=== PATIENT | male | born 1960 | race Caucasian/White ===

== ENCOUNTER 2017-03-20 15:55 | Outpatient (CLI) | payer OTHER ==
[2017-03-21] MEDS ORDERED: AMLODIPINE BESYL5 MG PO ×2 (01:25)
[2017-03-21] MEDS ORDERED: ATORVASTATIN CA20 MG PO ×2 (01:25)
[2017-03-21] MEDS ORDERED: TRIUMEQ 600-50-1 TAB PO ×2 (01:27)
[2017-03-21] MEDS ORDERED: OXAYDO5 MG PO ×2 (01:28)
[2017-03-21] MEDS ORDERED: LISINOPRIL10 MG PO ×2 (01:29)
[2017-03-21] MEDS ORDERED: ACETAMINOPHEN325 MG PO ×2 (01:30)
[2017-03-21] MEDS ORDERED: CEPHALEXIN500 MG PO ×2 (08:29)
--- NOTE | 2017-03-21 17:38 | NUR ---
Patient discharged home after last unit of blood was finished and labs were drawn. Understood discharge instructions and had no further questions. Left the facility at 1645.
== END 2017-03-20 23:00 ==
LOC: LAB SRH 15:55
DX: R63.4 Abnormal weight loss (principal); D64.9 Anemia, unspecified; B20 Human immunodeficiency virus [HIV] disease; D68.9 Coagulation defect, unspecified
CPT/HCPCS: 90074; 95059; 95067

== ENCOUNTER 2017-03-20 17:44 | Observation (INO) | payer OTHER ==
[~2017-03-20] VITALS: Ht 184.2 cm; Wt 74.7 kg
--- NOTE | 2017-03-20 19:33 | ED NURSING NOTES ---
Clinical Report - Nurses [facility] [address] [place] [address] 03/20/2017 17:46 Patient: MAE VILLA TRIAGE Triage time 18:10. Acuity: LEVEL 3. Chief Complaint: (anemia). Alert. No acute distress. SEPSIS SCREEN: Sepsis Screen. Negative (no infection suspected/documented). Temperature not greater than 38.3 degrees C (101 degrees F). Heart rate not greater than 90. Respiratory rate not greater than 20. GORDON COMA SCORE: [place] Coma Scale: 15- eyes open spontaneously (4); best verbal response- oriented x 4 (5); best motor response- obeys commands (6). --18:19 Amador Soni R.N. 18:13 03/20/17. BP: 147/65. HR: 58. RR: 20. O2 saturation: 100% on room air. Temp: 98 F (oral). Pain level now 7/10. --18:19 Amador Soni R.N. Weight: 71.6 kg stated. Height/Length: 72 inches Per Patient. BMI: 21.4. --18:15 Amador Soni R.N. Medications HIV medication. Medicinal marijuana. --18:17 Amador Soni R.N. OxyCODONE HCl Oral. --18:18 Amador Soni R.N. Tylenol Oral. --18:18 Amador Snoi R.N. Allergies None. --18:18 Amador Soni R.N. Medication/allergy information source: the patient. --18:19 Amador Soni R.N. History ( called pt in [employer] at 1752, unable to locate). --18:08 Amador Soni R.N. Primary physician (luze lena). ( pt had an appt today to establish care. States he was feeling "overly emotional and that he might be anemic again." He states he was sent by [facility] due to low h&h). This started today. 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 SOCIAL HX: Heavy tobacco smoker (cigarette)- less than 1 pack per day. History of drug use: marijuana. No alcohol use. FALL RISK ASSESSMENT: Fall risk assessment completed. No fall risk identified. NUTRITIONAL RISK ASSESSMENT: The nutritional risk assessment revealed no deficiencies. FUNCTIONAL ASSESSMENT: Functional assessment: no impairments noted. LEARNING NEEDS ASSESSMENT: The learning needs assessment revealed no barriers. SKIN INTEGRITY ASSESSMENT: Skin integrity risk assessment completed. No skin integrity risk identified. --18:19 Amador Soni R.N. PROBLEMS: Hip pain. Blood loss in legs. Anemia. HIV Illness. --18:19 Amador Soni R.N. ADDITIONAL SURGERIES: Basal cell carcinoma. --18:19 Amador Soni R.N. Interventions ID band on patient. To treatment room. --18:19 Amador Soni R.N. PHYSICAL ASSESSMENT 18:20 03/20/17. Ambulatory to room. GENERAL / NEURO / PSYCH: Oriented X 4. Appears in no acute distress. Mood/affect abnormal (flat). HEENT: Mucous membranes are pink. RESPIRATORY: Respirations not labored. GI / : Abdomen soft. SKIN: Skin is pale. --18:20 Amador Soni R.N. NURSING PROGRESS NOTES 18:03/20/2017 Site #1 started via IV in the right antecubital space with an 20g angiocath, with aseptic technique and good blood return; one attempt. Blood drawn: rainbow set. Labeled in the presence of the patient and sent to the lab. Saline lock flushed with 10 mL saline. --18:19 Patricia Allison R.N. The plan of care for this patient has been created. Head of bed elevated. Call light placed in reach. Bed placed in lowest position. Brakes of bed on. Patient ready for evaluation- chart flagged. --18:20 Amador Soni R.N. ( requested urine sample from pt, provided a urinal. Pt states, "Its gonna be a long time before I can pee. A long time. Probably after the transfusion."). --18:23 Amador Soni R.N. Critical value received by JAY Schulz. Hgb: 5.9. Hct: 18.4. Critical value read back. Verified lab result. ED physician and charge nurse notifed of critical value. Orders were received. --18:57 Amador Soni R.N. 19:49 03/20/2017 Zofran (Ondansetron HCl) IVP 4 mg given over 30 second(s) via site #1. Allergies verified and confirmed 5 rights. IV patency established. IV site checked: no pain, redness, or swelling. IV flushed thoroughly pre- and post-medication administration. IVP given by RN. --19:52 Gwen Ballard R.N. 19:50 03/20/2017 Dilaudid (HYDROmorphone HCl PF) IVP 0.5 mg given over 1 minute(s) via site #1. Allergies verified, confirmed 5 rights and sedative warning given to the patient. IV patency established. IV site checked: no pain, redness, or swelling. IV flushed thoroughly pre- and post-medication administration. IVP given by RN. --19:53 Gwen Ballard R.N. 19:53 03/20/17. BP: 133/55. HR: 56. RR: 15. O2 saturation: 100% on room air. Pain level now: 03/17. --19:53 Gwen Ballard R.N. 19:09. ( Attempted to reach Dr. Milton, Hematology oncologist at [facility]. Photographic Artist said all oncologists had left for the day and there was no doctor on-call. She transferred me to a forge operator but call was never picked up.). --19:58 Anahy Sanches 19:13. ( 2nd attempt to call [facility] oncologist or bellows charger assembler but call was transferred to the infusion center lockstitch front maker with no answer.). --20:00 Anahy Sanches 19:54- admitting MD, Dr. Easton at bedside to admit pt. --19:55 Gwen Ballard R.N. 20:17 03/20/17. BP: 155/55. HR: 63. RR: 15. O2 saturation: 100%. --20:17 Amador Soni R.N. ( pt still states he is unable to void). --20:39 Amador Soni R.N. 20:29. BLOOD PRODUCT STARTED: consent signed, ID band checked and blood product verified to order and patient's blood band by 2 staff members. #1 unit PRBC via IV pump (started at 150/hour at 2028. see paper transfusion record. Extensive education provided to pt prior to transfusion on s/sx of transfusion reaction and to immediately notify nurse of any changes or concerns. Pt verbalizes understanding.). See transfusion record. --20:41 Amador Soni R.N. DISPOSITION / DISCHARGE 21:26 03/20/17. Departure time: 2124. Condition at departure: stable. Admitted to Acute Care. Transported via stretcher by nurse with IV. Report was given to a nurse via a phone call. Report included patient's care, treatment, medications, reviewed medication reconcilliation, and condition (including any recent changes or anticipated changes). Report was acknowledged and care was transferred. (KELLY Kaye). ( blood infusing during transport by this RN, VS stable). Patient's personal items; items were transported with the patient. --21:26 Amador Soni R.N. 21:26 03/20/17. BP: 109/66. HR: 50. RR: 16. O2 saturation: 95%. Temp: 98.2 F. --21:26 Amador Soni R.N. Departure time: 21:33. --21:33 Gwen Ballard R.N. Locked/Released at 03/23/2017 9:39 by Amador Soni R.N.
--- NOTE | 2017-03-20 19:33 | ED NURSING NOTES ---
Clinical Report - Nurses [facility] [address] [place] [address] 03/20/2017 17:46 Patient: MAE VILLA TRIAGE Triage time 18:10. Acuity: LEVEL 3. Chief Complaint: (anemia). Alert. No acute distress. SEPSIS SCREEN: Sepsis Screen. Negative (no infection suspected/documented). Temperature not greater than 38.3 degrees C (101 degrees F). Heart rate not greater than 90. Respiratory rate not greater than 20. GORDON COMA SCORE: [place] Coma Scale: 15- eyes open spontaneously (4); best verbal response- oriented x 4 (5); best motor response- obeys commands (6). --18:19 Amador Soni R.N. 18:13 03/20/17. BP: 147/65. HR: 58. RR: 20. O2 saturation: 100% on room air. Temp: 98 F (oral). Pain level now 7/10. --18:19 Amador Soni R.N. Weight: 71.6 kg stated. Height/Length: 72 inches Per Patient. BMI: 21.4. --18:15 Amador Soni R.N. Medications HIV medication. Medicinal marijuana. --18:17 Amador Soni R.N. OxyCODONE HCl Oral. --18:18 Amador Soni R.N. Tylenol Oral. --18:18 Amador Soni R.N. Allergies None. --18:18 Amador Soni R.N. Medication/allergy information source: the patient. --18:19 Amador Soni R.N. History ( called pt in [employer] at 1752, unable to locate). --18:08 Amador Soni R.N. Primary physician (luz elena). ( pt had an appt today to establish care. States he was feeling "overly emotional and that he might be anemic again." He states he was sent by [facility] due to low h&h). This started today. 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 SOCIAL HX: Heavy tobacco smoker (cigarette)- less than 1 pack per day. History of drug use: marijuana. No alcohol use. FALL RISK ASSESSMENT: Fall risk assessment completed. No fall risk identified. NUTRITIONAL RISK ASSESSMENT: The nutritional risk assessment revealed no deficiencies. FUNCTIONAL ASSESSMENT: Functional assessment: no impairments noted. LEARNING NEEDS ASSESSMENT: The learning needs assessment revealed no barriers. SKIN INTEGRITY ASSESSMENT: Skin integrity risk assessment completed. No skin integrity risk identified. --18:19 Amador Soni R.N. PROBLEMS: Hip pain. Blood loss in legs. Anemia. HIV Illness. --18:19 Amador Soni R.N. ADDITIONAL SURGERIES: Basal cell carcinoma. --18:19 Amador Soni R.N. Interventions ID band on patient. To treatment room. --18:19 Amador Soni R.N. PHYSICAL ASSESSMENT 18:20 03/20/17. Ambulatory to room. GENERAL / NEURO / PSYCH: Oriented X 4. Appears in no acute distress. Mood/affect abnormal (flat). HEENT: Mucous membranes are pink. RESPIRATORY: Respirations not labored. GI / : Abdomen soft. SKIN: Skin is pale. --18:20 Amador Soni R.N. NURSING PROGRESS NOTES 18:03/20/2017 Site #1 started via IV in the right antecubital space with an 20g angiocath, with aseptic technique and good blood return; one attempt. Blood drawn: rainbow set. Labeled in the presence of the patient and sent to the lab. Saline lock flushed with 10 mL saline. --18:19 Patricia Allison R.N. The plan of care for this patient has been created. Head of bed elevated. Call light placed in reach. Bed placed in lowest position. Brakes of bed on. Patient ready for evaluation- chart flagged. --18:20 Amador oSni R.N. ( requested urine sample from pt, provided a urinal. Pt states, "Its gonna be a long time before I can pee. A long time. Probably after the transfusion."). --18:23 Amador Soni R.N. Critical value received by JAY Schulz. Hgb: 5.9. Hct: 18.4. Critical value read back. Verified lab result. ED physician and charge nurse notifed of critical value. Orders were received. --18:57 Amador Soni R.N. 19:49 03/20/2017 Zofran (Ondansetron HCl) IVP 4 mg given over 30 second(s) via site #1. Allergies verified and confirmed 5 rights. IV patency established. IV site checked: no pain, redness, or swelling. IV flushed thoroughly pre- and post-medication administration. IVP given by RN. --19:52 Gwen Ballard R.N. 19:50 03/20/2017 Dilaudid (HYDROmorphone HCl PF) IVP 0.5 mg given over 1 minute(s) via site #1. Allergies verified, confirmed 5 rights and sedative warning given to the patient. IV patency established. IV site checked: no pain, redness, or swelling. IV flushed thoroughly pre- and post-medication administration. IVP given by RN. --19:53 Gwen Ballard R.N. 19:53 03/20/17. BP: 133/55. HR: 56. RR: 15. O2 saturation: 100% on room air. Pain level now: 03/17. --19:53 Gwen Ballard R.N. 19:09. ( Attempted to reach Dr. Milton, Hematology oncologist at [facility]. Fire Extinguisher Repairer Inspector said all oncologists had left for the day and there was no doctor on-call. She transferred me to a bunch breaker but call was never picked up.). --19:58 Anahy Sanches 19:13. ( 2nd attempt to call [facility] oncologist or propellant charge loader but call was transferred to the infusion center front counter attendant with no answer.). --20:00 Anahy Sanches 19:54- admitting MD, Dr. Easton at bedside to admit pt. --19:55 Gwen Ballard R.N. 20:17 03/20/17. BP: 155/55. HR: 63. RR: 15. O2 saturation: 100%. --20:17 Amador Soni R.N. ( pt still states he is unable to void). --20:39 Amador Soni R.N. 20:29. BLOOD PRODUCT STARTED: consent signed, ID band checked and blood product verified to order and patient's blood band by 2 staff members. #1 unit PRBC via IV pump (started at 150/hour at 2028. see paper transfusion record. Extensive education provided to pt prior to transfusion on s/sx of transfusion reaction and to immediately notify nurse of any changes or concerns. Pt verbalizes understanding.). See transfusion record. --20:41 Amador Soni R.N. DISPOSITION / DISCHARGE 21:26 03/20/17. Departure time: 2124. Condition at departure: stable. Admitted to Acute Care. Transported via stretcher by nurse with IV. Report was given to a nurse via a phone call. Report included patient's care, treatment, medications, reviewed medication reconcilliation, and condition (including any recent changes or anticipated changes). Report was acknowledged and care was transferred. (KELLY Kaye). ( blood infusing during transport by this RN, VS stable). Patient's personal items; items were transported with the patient. --21:26 Amador Soni R.N. 21:26 03/20/17. BP: 109/66. HR: 50. RR: 16. O2 saturation: 95%. Temp: 98.2 F. --21:26 Amador Soni R.N. Departure time: 21:33. --21:33 Gwen Ballard R.N. Locked/Released at 03/23/2017 9:39 by Amador Soni R.N.
--- NOTE | 2017-03-20 19:33 | ED CLINICAL REPORT ---
Clinical Report - Physicians/[facility] [address] [place] [address] 03/20/2017 17:46 Patient: MAE VILLA Time Seen: 17:50. Arrived- By private vehicle. Historian- patient. HISTORY OF PRESENT ILLNESS Chief Complaint: anemia. This started about 5 months ago and is still present. It was gradual in onset and has been constant and waxing/waning. (patient has a history of approximate 5 months of problems with anemia. He reports that it started with pain in his left thigh and bruising there. He was recently found to be anemic. He has had an oncologic workup at [facility]. He says that he must feel he was ruled out and that he underwent a bone marrow biopsy which was unremarkable. He has had prior blood transfusions. He reports chronic pain in his thighs as well as bruising there and severe pain in his hips when he walks.). REVIEW OF SYSTEMS No chills, fever, sweats, calf pain or chest pain. No cough, pedal edema, abdominal pain, black stools or diarrhea. No nausea, vomiting or urinary problems. He has had severe fatigue. He has had difficulty breathing. It has been similar to previous symptoms. The patient has also had dyspnea on exertion. He has had bloody stools (previously - none recently). He has had severe joint pain (chronically - he says this is worse when he walks.), involving the right hip and left hip. Has had similar previous symptoms of joint pain. He reports that his HIV is well controlled. He says he last had a CD4 count and viral load done 3 months ago and that these were "good.". he reports bleeding gums. All systems otherwise negative, except as recorded above. PAST HISTORY PCP - Deandra Hematology - [place] at [facility]. Problems: Hip pain. Blood loss in legs. Anemia. HIV Illness. Additional Surgeries: Basal cell carcinoma. Medications: Tylenol Oral. OxyCODONE HCl Oral. HIV medication. Medicinal marijuana. Allergies: None. SOCIAL HISTORY Current every day heavy tobacco smoker (cigarette)- less than 1 pack per day. History of drug use: marijuana. No alcohol use. Residence: he recently moved to this area. ADDITIONAL NOTES The nursing notes have been reviewed. PHYSICAL EXAM Vital Signs: 03/20/2017 18:13 BP: 147/65. HR: 58. RR: 20. O2 saturation: 100%. Temp: 98 F. Have been reviewed. Appearance: Alert. He appears ill, is pale and ashen and appears frail. Eyes: Pupils equal, round and reactive to light. ENT: (gingival leukoplakia). Neck: Neck supple. CVS: Normal heart rate and rhythm. 2/6 systolic murmur. Respiratory: No respiratory distress. Breath sounds normal. Abdomen: No visible injury. Soft and nontender. Bowel sounds normal. No organomegaly. No mass. Back: Normal inspection. Rectal: Rectal exam normal and nontender. Stool heme negative. (POC test reference range: negative). Skin: Skin warm and dry. Extremities: No calf tenderness. Right thigh: moderate tenderness and large ecchymosis. Left thigh: moderate tenderness and large ecchymosis. LABS, X-RAYS, AND EKG Laboratory Tests: CBC w Diff: (SEBAS: 03/20/2017 18:10) ( MsgRcvd 03/20/2017 18:41) IP Test Result Flag Units (Reference) WHITE BLOOD COUNT 4.1 L K/uL (4.5-11.5) RED BLOOD COUNT 2.01 L M/uL (4.50-5.90) HEMATOCRIT 18.4 *L % (41.0-53.0) CRITICAL RESULTS CALLEDCalled to DIAN 03/20/17 1840Were 2 patient identifiers used? YESWas the result read back? YES MEAN CELL VOLUME 92 fL (80-100) MEAN CORPUSCULAR HGB 29 pg (26-34) MEAN CORPUSCULAR HGB CONC 32 g/dL (31-37) RED CELL DISTRIBUTION WIDTH 20.3 H % (11.6-14.8) PLATELET COUNT 328 K/uL (150-400) NEUTROPHIL % 53.3 % (50-75) LYMPH % 41.1 H % (25-40) MONO % 4.6 % (3-14) EOSINOPHIL % 0.3 % (0-4) BASOPHIL % 0.7 % (0-2) PT with INR: (SEBAS: 03/20/2017 18:10) ( MsgRcvd 03/20/2017 18:46) Final results Test Result Flag Units (Reference) INR 1.1 (0.8-1.2) Low Intensity Therapy: INR 1.5-2.0 PT range 18.5-23.1Mod.Intensity Therapy: INR 2.0-3.0 PT range 23.1-31.5High Intensity Therapy: INR 2.5-3.5 PT range 27.4-35.5High Intensity Therapy 2: INR 3.0-4.0 PT range 31.5-39.3 APTT 33 SECONDS (24-34) CMP: (SEBAS: 03/20/2017 18:10) ( MsgRcvd 03/20/2017 19:01) Final results Test Result Flag Units (Reference) GLUCOSE 101 mg/dL (70-110) BUN 11 mg/dL (7-18) CREATININE 1.2 mg/dL (0.6-1.3) Estimated GFR >60 mL/min Estimated GFR- >60 mL/min Note: Persistent reduction over 3 months in eGFR<60 mL/min/1.73 m2 defines CKD. Patients with eGFR values>=60 mL/min/1.73 m2 may also have CKD if evidence ofpersistent proteinuria. Additional information may be foundat www.kidney.org. SODIUM 133 L mmol/L (136-145) POTASSIUM 4.1 mmol/L (3.5-5.1) CHLORIDE 100 mmol/L (98-107) CARBON DIOXIDE 23 mmol/L (21-32) CALCIUM 8.1 L mg/dL (8.5-10.1) TOTAL PROTEIN 6.4 g/dL (6.4-8.2) ALBUMIN 2.4 L g/dL (3.3-5.0) BILIRUBIN, TOTAL 1.7 H mg/dL (0.0-1.0) ALKALINE PHOSPHATASE 97 U/L (46-116) AST (SGOT) 20 U/L (15-37) ALT (SGPT) 12 U/L (12-78) LIPASE 72 L U/L (73-393) AMYLASE 38 U/L (25-115) . PROGRESS AND PROCEDURES Course of Care: Patient is stable. Discussed case with hospitalist, (Jemma). Reviewed test results and need for additional work-up. Agreed upon treatment plan, need for patient follow-up and decision to place in observation. Health care provider will see patient in hospital. Patient/family counseled. Old medical records reviewed. Disposition: Admitted. Observation. CLINICAL IMPRESSION Severe chronic anemia. (Electronically signed by Yemi Salazar MD 03/21/2017 9:34)
--- NOTE | 2017-03-20 19:33 | ED ORDER SUMMARY ---
..... Patient: MAE VILLA OrderSheet [facility] VisitID: [id number] [place] [address] 56y, M Registration Date/Time: 03/20/2017 ORDER SHEET Weight: 71.6 kg (stated) Allergies: None GENERAL ORDERS: CBC w Diff Urgent (17:51 03/20/2017 Jaime HURT) (Ack 17:54 LNations ER Tech1) (18:12 Bradley R.N.) CMP Urgent (17:51 03/20/2017 Jaime HURT) (Ack 17:54 LNations ER Tech1) (18:12 Bradley R.N.) UA-Culture if indicated Urgent (17:51 03/20/2017 Jaime HURT) (Ack 17:54 LNations ER Tech1) PT with INR Urgent (17:51 03/20/2017 Jaime HURT) (Ack 17:54 LNations ER Tech1) (18:12 Bradley R.N.) PTT Urgent (17:51 03/20/2017 Jaime HURT) (Ack 17:54 LNations ER Tech1) (18:12 Bradley R.N.) Amylase Urgent (17:51 03/20/2017 Jaime HURT) (Ack 17:54 LNations ER Tech1) (18:12 Bradley R.N.) Lipase Urgent (17:51 03/20/2017 Jaime HURT) (Ack 17:54 LNations ER Tech1) (18:13 Bradley R.N.) Type & Screen Urgent (17:51 03/20/2017 Jaime HURT) (Ack 17:54 LNations ER Tech1) (18:13 Bradley R.N.) Type & Cross (BLEEDING) (LOW H-H) Urgent (18:53 03/20/2017 LNations ER Tech1 verbal order read back to Jaime HURT) (18:55 KWilliams R.N.) - (manual differential) (19:28 03/20/2017 Jaime HURT) (Ack 19:29 RKaruga) (20:39 KWilliams R.N.) - (transfuse 2 units PRBC's - 3H per unit) (19:47 03/20/2017 Jaime HURT) (Ack 19:53 RKaruga) (20:39 KWoscarams R.N.) MEDICATION ORDERS: IV FLUIDS: IV Saline Lock (17:51 03/20/2017 Jaime HURT) (Ack 18:13 Bradley R.N.) (18:24 Ananda R.N.) Dilaudid IV 0.5 mg (HIGH ALERT MEDICATION, NOW) (19:40 03/20/2017 Jaime HURT) (Ack 19:47 RCollier R.N.) (19:53 RCollier R.N.) Zofran IV 4 mg (NOW) (19:40 03/20/2017 Jaime HURT) (Ack 19:47 RCollier R.N.) (19:52 RCollier R.N.) ORDER SHEET NOTES: [Electronically signed by Yemi Salazar MD (09:34 03/21/2017)] [Electronically signed by Amador Soni R.N. (09:39 03/23/2017)] [Electronically locked/signed by Amador Soni R.N. (09:39 03/23/2017)]
--- NOTE | 2017-03-20 19:33 | ED ORDER SUMMARY ---
..... Patient: MAE VILLA OrderSheet [facility] VisitID: [id number] [place] [address] 56y, M Registration Date/Time: 03/20/2017 ORDER SHEET Weight: 71.6 kg (stated) Allergies: None GENERAL ORDERS: CBC w Diff Urgent (17:51 03/20/2017 Jaime HURT) (Ack 17:54 LNations ER Tech1) (18:12 Bradley R.N.) CMP Urgent (17:51 03/20/2017 Jaime HURT) (Ack 17:54 LNations ER Tech1) (18:12 Bradley R.N.) UA-Culture if indicated Urgent (17:51 03/20/2017 Jaime HURT) (Ack 17:54 LNations ER Tech1) PT with INR Urgent (17:51 03/20/2017 Jaime HURT) (Ack 17:54 LNations ER Tech1) (18:12 Bradley R.N.) PTT Urgent (17:51 03/20/2017 Jaime HURT) (Ack 17:54 LNations ER Tech1) (18:12 Bradley R.N.) Amylase Urgent (17:51 03/20/2017 Jaime HURT) (Ack 17:54 LNations ER Tech1) (18:12 Bradley R.N.) Lipase Urgent (17:51 03/20/2017 Jaime HURT) (Ack 17:54 LNations ER Tech1) (18:13 Bradley R.N.) Type & Screen Urgent (17:51 03/20/2017 Jaime HURT) (Ack 17:54 LNations ER Tech1) (18:13 Bradley R.N.) Type & Cross (BLEEDING) (LOW H-H) Urgent (18:53 03/20/2017 LNations ER Tech1 verbal order read back to Jaime HURT) (18:55 KWilliams R.N.) - (manual differential) (19:28 03/20/2017 Jaime HURT) (Ack 19:29 RKaruga) (20:39 KWilliams R.N.) - (transfuse 2 units PRBC's - 3H per unit) (19:47 03/20/2017 Jaime HURT) (Ack 19:53 RKaruga) (20:39 KWoscarams R.N.) MEDICATION ORDERS: IV FLUIDS: IV Saline Lock (17:51 03/20/2017 Jaime HURT) (Ack 18:13 Bradley R.N.) (18:24 Ananda R.N.) Dilaudid IV 0.5 mg (HIGH ALERT MEDICATION, NOW) (19:40 03/20/2017 Jaime HURT) (Ack 19:47 RCollier R.N.) (19:53 RCollier R.N.) Zofran IV 4 mg (NOW) (19:40 03/20/2017 Jaime HURT) (Ack 19:47 RCollier R.N.) (19:52 RCollier R.N.) ORDER SHEET NOTES: [Electronically signed by Yemi Salazar MD (09:34 03/21/2017)] [Electronically signed by Amador Soni R.N. (09:39 03/23/2017)] [Electronically locked/signed by Amador Soni R.N. (09:39 03/23/2017)]
--- NOTE | 2017-03-20 20:38 | Progress Note ---
Subjective General Admission History and Physical Examination Patient Name: Refugio Rodriguez Admission Date: March 20, 2017 Primary Care Provider: Helena BOSCH Attending Physician: Roger Wolfe M.D. Admitting Physician: Aneesh Easton M.D. Code Status: NO CODE Room: 202 Status: Observation, ACU SUBJECTIVE Historian: Patient Reliability: Fair Chief Complaint: Anemia, bleeding in the legs History of Present Illness: The patient is a 56-year-old white male with a significant past medical history of HIV, spontaneous ecchymosis/bleeding into bilateral lower extremities, chronic anemia associated with spontaneous ecchymosis presented to [facility] emergency department as a referral from Helena Liriano secondary to anemia for further evaluation and treatment. [facility] ER evaluation was consistent with anemia requiring transfusional therapy. Secondary to the above, the patient was admitted by Aneesh Easton M.D. for further evaluation and treatment. The patient has a long-standing history dating back to October 2016 of recurrent spontaneous ecchymosis/bleeding into bilateral lower extremities. He is undergone extensive workup at [place] [facility] with no clear etiology as to the cause of his spontaneous ecchymosis. Records are not available at this time. This is like to recurrent anemia, chronic lower extremity pain, inability to ambulate without a walker. He has received multiple transfusions in the past. [facility] ER evaluation as noted above was consistent with anemia H&H 5.9/18.5 requiring transfusional therapy. Secondary to the above the patient was admitted for transfusion by Aneesh Easton M.D. PAST MEDICAL HISTORY Illnesses: 1. HIV 2. Spontaneous ecchymosis/bleeding Allergies: 1. No known drug allergies Medications: 1. Marijuana-oral 2. Oxycodone-dosage unknown 3. Tylenol-dosage unknown Surgery: 1. Basal cell carcinoma excision 2. Injury forearm Injuries: 1. Forearm injury Hospitalizations: 1. For above surgery and medical problems FAMILY HISTORY Parents: 1. Father, Lan, , 65, CHF 2. Mother, Andrei, living, 78, fibromyalgia Siblings: 1. Female, living, 57, healthy 2. Male, living, 56, healthy Children: 1. None Other significant family history: None SOCIAL HISTORY 1. Marital Status: Single 2. Nondenominational: None 3. Education: High school and 2 years of college 4. Employment History: Unemployed, disabled 2017 5. Occupational health exposures: None HABITS 1. Tobacco: Cigarettes-40 pack years, smokes 1-2 cigarettes per day 2. Drugs: Marijuana 3. Alcohol: None 4. Caffeine: Coffee-one cup per day HEALTH SUPERVISION Item/Test 1. Colonoscopy: 2012 IMMUNIZATIONS: 1. Pneumococcal: 2016 2. Influenza: 2016 3. Tetanus: Unknown ADVANCED DIRECTIVES: 1. Living well: No 2. POLST: No 3. Code Status: NO CODE 4. Durable [employer] Employee [employer] Intern Health care: No 5. Donor card: No REVIEW OF SYSTEMS Remarkable for those things stated in the history of present illness and past medical history. Seventeen point review of system completed with the following notable findings: General: Weight loss, fatigue, weakness Skin: Rash, dryness, skin changes Nose: Epistaxis Mouth: Gums soreness, teeth problems, sores in mouth Cardiovascular: Ankle swelling, shortness of breath with exertion Gastrointestinal: Loss of appetite Musculoskeletal: Joint stiffness, joint pain, joint swelling, muscle pain/ cramping Blood and lymphatic: Anemia, easy bruising/bleeding Physical Exam Vital Signs / I&Os Vital Signs Date Time Temp Pulse Resp B/P Pulse O2 O2 Flow FiO2 Ox Delivery Rate 03/21 0251 98.6 70 14 136/72 98 Room Air 03/21 0120 98.4 65 15 123/75 99 03/21 0015 98.1 51 15 121/66 100 03/20 2347 98.2 62 17 136/62 99 03/20 2333 98.6 58 15 139/77 100 03/20 2316 97.5 57 15 146/79 100 03/20 2302 97.9 74 16 146/73 100 03/20 2227 97.9 53 15 133/77 100 Room Air 0.0 I&O 03/21 0000 03/20 1600 03/20 0800 Intake Total 0 Output Total 0 Balance 0 General Appearance Alert, Oriented X3, Cooperative, No acute distress HEENT Atraumatic, PERRLA, EOMI, Moist mucous membranes Lungs Clear to auscultation, Normal air movement Neck Supple, No JVD Cardiovascular Regular rate and rhythm, Normal S1 and S2, grade 2/6 systolic murmur present Abdomen Normal bowel sounds, Soft Extremities No cyanosis, No clubbing, bilateral lower extremity edema with diffuse ecchymosis primarily involving thighs right greater than left Skin biopsy site left lower abdomen. Neurological Cranial nerves intact, Strength 5/5 x4 ext's, No lateralizing signs Psych/Mental Status Mental status normal, Mood normal LAB Results Laboratory Tests 03/20 1810 Chemistry Plasma Sodium (136 - 145 mmol/L) 133 Plasma Potassium (3.5 - 5.1 mmol/L) 4.1 Plasma Chloride (98 - 107 mmol/L) 100 CO2 (Enzymatic) (21 - 32 mmol/L) 23 BUN (7 - 18 mg/dL) 11 Creatinine (0.6 - 1.3 mg/dL) 1.2 Est GFR ( Amer) (mL/min) >60 Est GFR (Non-Af Amer) (mL/min) >60 Glucose (70 - 110 mg/dL) 101 Plasma Calcium (8.5 - 10.1 mg/dL) 8.1 Total Bilirubin (0.0 - 1.0 mg/dL) 1.7 AST (15 - 37 U/L) 20 ALT (12 - 78 U/L) 12 Alkaline Phosphatase (46 - 116 U/L) 97 Total Protein (6.4 - 8.2 g/dL) 6.4 Albumin (3.3 - 5.0 g/dL) 2.4 Amylase (25 - 115 U/L) 38 Lipase (73 - 393 U/L) 72 Coagulation INR (0.8 - 1.2) 1.1 APTT (24 - 34 SECONDS) 33 Hematology WBC (4.5 - 11.5 K/uL) 4.1 RBC (4.50 - 5.90 M/uL) 2.01 Hgb (13.5 - 17.5 gm/dL) 5.9 Hct (41.0 - 53.0 %) 18.4 MCV (80 - 100 fL) 92 MCH (26 - 34 pg) 29 RDW (11.6 - 14.8 %) 20.3 Neut % (Auto) (50 - 75 %) 62 Lymph % (Auto) (25 - 40 %) 34 [place] % (Auto) (3 - 14 %) 2 Eos % (Auto) (0 - 4 %) 0 Baso % (Auto) (0 - 2 %) 1 Band Neutrophils % (0 - 8 %) 1 Metamyelocytes % (0 - 1 %) 0 Myelocytes (0 - 1 %) 0 Other Cell Type 0 Plt Count, EDTA (150 - 400 K/uL) 328 Anisocytosis (manual) 3+ PUBS MCHC (31 - 37 g/dL) 32 Assessment and Plan Problem List 1. Anemia Status Chronic Onset Date Unknown Plan -Patient presents with findings of chronic anemia secondary to recurrent lower extremity bleeding -Transfuse 2 units packed RBCs -Outpatient follow-up with PCP -Plan discharge in a.m. 2. HIV disease Status Chronic Onset Date Unknown Plan -The patient has history of HIV disease -Currently on ART -We'll follow-up with ID specialist scheduled through Dr. Wolfe/Deandra -States recent CD4 counts good 3. UTI (urinary tract infection) Status Acute Onset Date Unknown Plan -Patient with findings of UTI on urinalysis -Rocephin 1 g IV -Switch to oral meds in a.m. -Await urine C&S 4. Ecchymoses, spontaneous Status Chronic Onset Date Unknown Plan -Patient with history of spontaneous ecchymosis -Etiology unclear at this time -Outpatient follow-up with hematology/oncology at [facility] Current status: Fair, unstable Anticipated discharge date: Anticipated discharge in 24 hours Anticipated discharge placement: Home Patient care time: Time in chart review, patient interview, physical exam, CPOE, and care documentation: 70 mins Visit to patient today: 2 Complexity of care: Moderate-High DVT prophylaxis: SCD E&M Codes Admission: Obsv-Comp/Moderate/[id number]
[2017-03-20 22:27] VITALS: BP 133/77
[2017-03-20 23:02] VITALS: BP 146/73
[2017-03-20 23:16] VITALS: BP 146/79
[2017-03-20 23:33] VITALS: BP 139/77
--- NOTE | 2017-03-20 23:41 | NUR ---
PT ARRIVED TO THE FLOOR AT 2130 WITH FIRST UNIT OF BLOOD ALREADY RUNNING. NO SIGNS OF ADVERSE REACTION NOTED, VITAL SIGNS STABLE. PT WAS UNABLE TO PROVIDE ANY URINE FOR SPECIMENT SAMPLE IN THE ED AND WAS ONLY ABLE TO PROVIDE A VERY SMALL AMOUNT UPON ARRIVAL TO THE FLOOR. PT REPORTS CHRONIC PAIN IN HIS BLE R/T BLEEDING. PT HAS REPORTS HAVING CHRONIC ANEMIA, DENIES DIZZINESS AND REPORTS ONLY MILD SHORTNESS OF BREATH UPON EXERTION. HE IS ALERT AND ORIENTED X 3. WILL CONTINUE TO MONITOR PT FOR CHANGES IN CONDITION.
[2017-03-20 23:47] VITALS: BP 136/62
[2017-03-21] VITALS (10 sets, daily range): BP systolic 110–143; BP diastolic 66–77
[2017-03-21] MEDS ORDERED: ATORVASTATIN CA20 MG PO ×2 (01:25)
[2017-03-21] MEDS ORDERED: AMLODIPINE BESYL5 MG PO ×2 (01:25)
[2017-03-21] MEDS ORDERED: TRIUMEQ 600-50-1 TAB PO ×2 (01:27)
[2017-03-21] MEDS ORDERED: OXAYDO5 MG PO ×2 (01:28)
[2017-03-21] MEDS ORDERED: LISINOPRIL10 MG PO ×2 (01:29)
[2017-03-21] MEDS ORDERED: ACETAMINOPHEN325 MG PO ×2 (01:30)
--- NOTE | 2017-03-21 04:07 | NUR ---
PT RANG BENSON TO GO TO THE BATHROOM, WENT IN ROOM TO HELP PT GET ON SIDE OF BED.ONCE PT WAS ON SIDE OF BED, PT TOLD ME THAT I CAN LEAVE, I OFFERED HELPED TO THE PT ASKING IF HE NEEDED HELP PUSHING THE IV POLE WHILE PT USES WALKER, PT DECLINE ASSISTANCE FROM TURNTABLE WORKER. TURNTABLE WORKER LEFT ROOM. REPORTED TO NURSE ON THE ACTION
--- NOTE | 2017-03-21 08:25 | Provider's Discharge Care Plan ---
Problem, Goal, Plan Problem List 1. Anemia Goals: Improved health/wellness, Therapeutic intervention Instructions: Follow up as directed 2. Ecchymoses, spontaneous Goals: Diagnostic testing Instructions: Follow up as directed 3. HIV disease Goals: Improved health/wellness Instructions: Follow up as directed 4. UTI (urinary tract infection) Goals: Therapeutic intervention Instructions: Follow up as directed
[2017-03-21] MEDS ORDERED: CEPHALEXIN500 MG PO ×2 (08:29)
--- NOTE | 2017-03-21 10:45 | NUR ---
CALLED DR TORRES AND SPOKE WITH MARTA. ASKED FOR THE ORDER FOR THE 1 UNIT OF BLOOD SHE SAID SHE WANTS HIM TO GET.
--- NOTE | 2017-03-21 11:07 | NUR ---
the 2nd unit of rbc was not ended last night. i charted and end time of 2301 which was the last documented vital signs. I do not, however, know what time the unit actually stopped.
--- NOTE | 2017-03-21 14:57 | NUR ---
patient finishing up his blood transfusion. tolerating well. complains of 8/10 back pain. gave prn pain meds. resting in bed. patient will discharge this afternoon/evening after his blood is complete.
--- NOTE | 2017-03-21 15:12 | NUR ---
Pharmacist did make attempt to discuss medications with patient. Nurse advised against. Pt does not like to talk and would rather rest and be left alone.
--- NOTE | 2017-03-23 09:40 | ED DISCHARGE INSTRUCTIONS ---
Patient: MAE VILLA General Instructions [facility] VisitID: [id number] [address] [place] [address] 56y, M Registration Date/Time: 03/20/2017 Severe chronic anemia. (Electronically signed by Ymei Salazar MD 03/21/2017 9:34)
--- NOTE | 2017-03-23 09:40 | ED MED RECONCILIATION SUMMARY ---
Patient: MAE VILLA Medication Reconciliation Report [facility] VisitID: [id number] [address] [place] [address] 56y, M Registration Date/Time: 03/20/2017 Weight: 71.6 kg Height/Length: 72 in. BMI: 21.4 ALLERGIES: None The patient's Home Medications are listed below: THE FOLLOWING MEDICATIONS NEED TO BE RECONCILED: HIV medication Medicinal marijuana OxyCODONE HCl Oral Tylenol Oral The source(s) of the original Home Medication information: patient The following Medications were given to the patient in the Emergency Department: Zofran [IVP] IVP 4 mg, administered: 03/20/2017 7:49:00 PM Dilaudid [IVP] IVP 0.5 mg, administered: 03/20/2017 7:50:00 PM The following Medications were prescribed to the patient: None.
--- NOTE | 2017-03-23 09:40 | ED DISCHARGE INSTRUCTIONS ---
Patient: MAE VILLA General Instructions [facility] VisitID: [id number] [address] [place] [address] 56y, M Registration Date/Time: 03/20/2017 Severe chronic anemia. (Electronically signed by Yemi Salazar MD 03/21/2017 9:34)
--- NOTE | 2017-03-23 09:40 | ED MAR SUMMARY ---
..... Medication Administration Record [facility] [address] [place] [address] Patient: MAE VILLA Visit ID: [id number] 56y, M Weight: 71.6 kg Height/Length: 72 in BMI: 21.4 ALLERGIES: None Given 19:49 03/20/2017 Gwen Ballard RConradN. Medication Administered: ZOFRAN [IVP] (ONDANSETRON HCL), Dose: 4 mg IVP over 30 second(s), Site: #1 right AC. Medication Ordered: Zofran IV 4 mg (NOW). Given 19:50 03/20/2017 Gwen Ballard, RConradN. Medication Administered: DILAUDID [IVP] (HYDROMORPHONE HCL PF), Dose: 0.5 mg IVP over 1 minute(s), Site: #1 right AC. Medication Ordered: Dilaudid IV 0.5 mg (HIGH ALERT MEDICATION, NOW).
--- NOTE | 2017-03-23 09:40 | ED MAR SUMMARY ---
..... Medication Administration Record [facility] [address] [place] [address] Patient: MAE VILLA Visit ID: [id number] 56y, M Weight: 71.6 kg Height/Length: 72 in BMI: 21.4 ALLERGIES: None Given 19:49 03/20/2017 Gwen Ballard RConradN. Medication Administered: ZOFRAN [IVP] (ONDANSETRON HCL), Dose: 4 mg IVP over 30 second(s), Site: #1 right AC. Medication Ordered: Zofran IV 4 mg (NOW). Given 19:50 03/20/2017 Gwen Ballard, RConradN. Medication Administered: DILAUDID [IVP] (HYDROMORPHONE HCL PF), Dose: 0.5 mg IVP over 1 minute(s), Site: #1 right AC. Medication Ordered: Dilaudid IV 0.5 mg (HIGH ALERT MEDICATION, NOW).
--- NOTE | 2017-03-23 09:40 | ED MED RECONCILIATION SUMMARY ---
Patient: MAE VILLA Medication Reconciliation Report [facility] VisitID: [id number] [address] [place] [address] 56y, M Registration Date/Time: 03/20/2017 Weight: 71.6 kg Height/Length: 72 in. BMI: 21.4 ALLERGIES: None The patient's Home Medications are listed below: THE FOLLOWING MEDICATIONS NEED TO BE RECONCILED: HIV medication Medicinal marijuana OxyCODONE HCl Oral Tylenol Oral The source(s) of the original Home Medication information: patient The following Medications were given to the patient in the Emergency Department: Zofran [IVP] IVP 4 mg, administered: 03/20/2017 7:49:00 PM Dilaudid [IVP] IVP 0.5 mg, administered: 03/20/2017 7:50:00 PM The following Medications were prescribed to the patient: None.
== END 2017-03-21 16:43 | disposition home or self-care (01) ==
LOC: ED SRH 17:44 → ACUTE2 SRH 19:47 → TRANS SRH 19:47 → ACUTE2 SRH 20:41
PROVIDERS: ADMIT Emergency Medicine
PROC: 30233N1 Transfusion of Nonautologous Red Blood Cells into Peripheral Vein, Percutaneous Approach (ICD-10-PCS; principal; 2017-03-20)
PROC: 30233N1 Transfusion of Nonautologous Red Blood Cells into Peripheral Vein, Percutaneous Approach (ICD-10-PCS; 2017-03-21)
DX: D50.0 Iron deficiency anemia secondary to blood loss (chronic) (principal); R58 Hemorrhage, not elsewhere classified; N39.0 Urinary tract infection, site not specified; Z21 Asymptomatic human immunodeficiency virus [HIV] infection status; R91.8 Other nonspecific abnormal finding of lung field; F17.210 Nicotine dependence, cigarettes, uncomplicated
CPT/HCPCS: 29230; 29259; 29264; 90001; 90004; 90047; 90074; 90100; 90155; 90469; 91004; 91162; 91163; 91504; 91505; 91544; 91643; 92235; 92530; 92610; 92668; 92670; 92710; 94001; 94060; 95059; 95140